=== PATIENT | male | born 1970 | race Caucasian/White ===

== ENCOUNTER 2017-01-31 10:34 | Emergency (ER) | payer OTHER ==
[2017-01-31 11:13] VITALS: BP 135/86; PULSE 70; RESP 18; TEMP 98.2; O2SAT 98
--- NOTE | 2017-01-31 11:48 | UCPHY ---
H & P Time Seen by Provider: 01/31/17 11:27 Patient Type: New HPI/ROS: This patient presents with a chief complaint of right ear pain and right eye irritation which began yesterday. He called a friend who is a physician and amoxicillin was prescribed but this has not been effective. The patient has been ill for 2 weeks primarily with a productive cough. He has not had a sore throat for 1 week. He has had nasal congestion but not a runny nose. He denies fever, chest pain or shortness of breath. His energy level has been good. Smoking Status: Never smoked Physical Exam: GENERAL: Well-appearing, well-nourished and in no acute distress. HEAD: Atraumatic, normocephalic. EYES: Pupils equal round and reactive to light, extraocular movements intact, sclera anicteric, conjunctiva are normal. ENT: nares patent, oropharynx clear without exudates. Moist mucous membranes. The left tympanic membrane is normal. On the right there is some retraction of the tympanic membrane but there is no evidence of otitis media. There is some cerumen present. NECK: Normal range of motion, supple without lymphadenopathy or JVD. LUNGS: Breath sounds clear to auscultation bilaterally and equal. No wheezes rales or rhonchi. HEART: Regular rate and rhythm EXTREMITIES: Normal range of motion, no pitting or edema. No clubbing or cyanosis. NEUROLOGICAL: Cranial nerves II through XII grossly intact. Normal speech, normal gait. PSYCH: Normal mood, normal affect. SKIN: Warm, dry, normal turgor, no visible rashes or lesions. Constitutional: Initial Vital Signs Temperature (C) 36.8 C 01/31/17 11:11 Heart Rate 70 01/31/17 11:11 Respiratory Rate 18 01/31/17 11:11 Blood Pressure 135/86 H 01/31/17 11:11 O2 Sat (%) 98 01/31/17 11:11 O2 Delivery Mode Room Air Allergies/Adverse Reactions: No Known Allergies Allergy (Unverified 01/31/17 11:11) Home Medications: Medication Instructions Recorded NK [No Known Home Meds] 01/31/17 Medical Decision Making Differential Diagnosis: I believe that this patient has a viral syndrome with eustachian tube dysfunction which is causing his ear pain. There is no evidence of otitis media or external otitis. The right eye is normal by my examination Consequently I do not believe that he has conjunctivitis or foreign body. Departure - Departure Disposition: Home, Routine, Self-Care Clinical Impression: Eustachian tube dysfunction Qualifiers: Laterality: right Qualified Code(s): H69.81 - Other specified disorders of Eustachian tube, right ear Condition: Good Instructions: Barotrauma (ED) Additional Instructions: If your symptoms have not resolved in another 4-7 days you should be re- evaluated. Cause for concern would be fever, increasing pain or shortness of breath. Use a nasal decongestant spray such as Afrin. Activity as tolerated. Diet as tolerated. Referrals: [facility] [Other] - As per Instructions - PQRS PQRS Measurement: Not applicable
== END 2017-01-31 11:55 | disposition home or self-care (01) ==
LOC: CED 10:34
DX: H69.81 Other specified disorders of Eustachian tube, right ear (principal)
CPT/HCPCS: 99203-PO; G0463-PO